=== PATIENT | male | born 1975 | race Caucasian/White ===

== ENCOUNTER → 2017-06-09 | Outpatient (CLI) | payer OTHER ==
[2016-02-22 11:32] VITALS: BP 117/80
--- NOTE | 2017-06-10 10:20 | MRI ---
MRI right shoulder without contrast Indication: Right shoulder pain Comparison: None Technique: Multiplanar multi sequence MR images of the right shoulder were obtained without contrast. Findings: The marrow signal and bony alignment are within normal limits, without evidence for acute f racture or dislocation. There are mild degenerative changes of the AC joint, without gross encroachme nt of the rotator cuff. Trace fluid is present within the subacromial/subdeltoid bursa. There is inte rmediate signal seen within the distal supraspinatus and infraspinatus tendons, consistent with tendi nosis. Focus of fluid signal undermining the distal leading edge supraspinatus fibers is noted, witho ut significant tendon retraction. There is partial undersurface tear of the superior subscapularis te ndon. The teres minor is intact. There is thickening and intermediate signal of the intra-articular p ortion of the long head biceps tendon. There is mildly increased fluid within the bicipital groove. T here is mild diffuse glenohumeral chondrosis, without evidence for full-thickness chondral defect or subchondral marrow signal abnormality. There is some intermediate signal within the superior labrum. The remainder of the labrum is otherwise grossly intact. There is no joint effusion. No significant m uscle atrophy about the shoulder appreciated. Impression: 1. Supraspinatus and infraspinatus tendinosis with focal rim rent tear of the leading edge supraspina tus tendon, without significant tendon retraction. 2. Partial undersurface tear of the superior subscapularis tendon, likely chronic. There is no signif icant subluxation of the long head biceps tendon. 3. Intra-articular biceps tendinosis. Mildly increased peritendinous fluid in the bicipital groove, p ossibly reflecting tenosynovitis. 4. Degenerative fraying/tear of the superior labrum. 5. Mild AC joint degenerative disease, subacromial/subdeltoid bursitis. Reported By:
== END | disposition home or self-care (01) | DRG 556 ==
LOC: RAD 11:17
PROVIDERS: ATTEND Nurse Practitioner Family
DX: M25.511 Pain in right shoulder (principal); S46.811A Strain of other muscles, fascia and tendons at shoulder and upper arm level, right arm, initial encounter; S43.491A Other sprain of right shoulder joint, initial encounter; S46.011A Strain of muscle(s) and tendon(s) of the rotator cuff of right shoulder, initial encounter; X58.XXXA Exposure to other specified factors, initial encounter; M19.011 Primary osteoarthritis, right shoulder; M75.22 Bicipital tendinitis, left shoulder; M75.80 Other shoulder lesions, unspecified shoulder
CPT/HCPCS: 73222

== ENCOUNTER 2017-09-06 18:30 | Emergency (ER) | payer OTHER ==
[2017-09-06 18:34] VITALS: BP 146/96; BMI 29.7
[2017-09-06] MEDS ORDERED: TORADOL 30 MG VIAL ONE (19:04)
[2017-09-06] MEDS ORDERED: TORADOL 30 MG VIAL IVP ONE (19:05)
[2017-09-06] MEDS ORDERED: MORPHINE SULFATE INJ 4 MG IVP ONE (19:05)
[2017-09-06] MEDS ORDERED: MORPHINE SULFATE INJ 4 MG ONE (19:06)
[2017-09-06 19:08] LABS: BILIRUBIN,URINE NEGATIVE (NEGATIVE); BLOOD/HEMOGLOBIN,URINE 5+ (NEGATIVE); GLUCOSE, URINE NEGATIVE (NEGATIVE); KETONES,URINE NEGATIVE (NEGATIVE); LEUKOCYTE ESTERASE ,URINE 1+ (NEGATIVE); NITRITES,URINE POSITIVE (NEGATIVE); PROTEIN,URINE 2+ (NEGATIVE); UROBILINOGEN,URINE NORMAL (NORMAL)
[2017-09-06 19:17] LABS: APPEARANCE,URINE CLOUDY (CLEAR); COLOR,URINE YELLOW (YELLOW)
[2017-09-06 19:18] LABS: AMORPHOUS SEDIMENT,UR 2+ /HPF (NEGATIVE); MUCUS,URINE MODERATE /HPF (NEGATIVE); RBC,URINE TNTC /HPF (NONE SEEN); SQUAMOUS EPITHELIAL CELL,UR RARE /HPF (NEGATIVE)
[2017-09-06 19:21] LABS: BACTERIA,URINE NEGATIVE /HPF (NEGATIVE); CALCIUM OXALATE CRYSTALS,UR RARE /HPF (NEGATIVE)
--- NOTE | 2017-09-06 19:30 | DR.GENAD ---
HPI - PCP Primary Care Physician: artemio - Complaint/Symptoms Chief Complaint Doctors Comments: Patient presents with right flank pain; he has a history of kidney stones. Chief Complaint:: flank pain, with hemapuria - Source History Provided: Patient - Mode of Arrival Mode of Arrival: Ambulatory - Timing Onset of Chief Complaint: 09/05/17 PMH - PMH Past Medical History: Yes Past Medical History Comment: kidney stone Past Surgical History: Yes Past Surgical History Comment: EGD - Family History History of Family Medical Conditions: Yes Family Medical History: Hypertension - Social History Does patient currently use any type of tobacco product: Yes Have you used tobacco products in the last 12 months: No Type of Tobacco Use: Smokeless Does any household member use tobacco: No Alcohol Use: None Do you use any recreational Drugs:: No Lives With: Family Lives Where: Home - infectious screening In the last 2 months have you had wt loss of >10#?: NO Have you had fever, night sweats or hemotysis?: No Have you traveled outside the country in the last 6 months?: No Isolation: Standard ROS - Review of Systems Eyes: No Symptoms Reported ENTM: No Symptoms Reported Respiratoy: No Symptoms Reported Cardiovascular: No Symptoms Reported Gastrointestinal/Abdominal: No Symptoms Reported Genitourinary: No Symptoms Reported Neurological: No Symptoms Reported Musculoskeletal: No Symptoms Reported Integumentary: No Symptoms Reported Hematologic/Lymphatic: No Symptoms Reported Endocrine: No Symptoms Reported Psychiatric: No Symptoms Reported All Other Systems: Reviewed and Negative PE - Vital Signs Vitals: Temperature 97.5 F Pulse Rate 84 Respiratory Rate 18 Blood Pressure 146/96 O2 Sat by Pulse Oximetry 99 - General Limitations: No Limitations General Appearance: Alert, In No Apparent Distress - Head Head Exam: Normal Inspection - Eyes Eye exam: Normal Appearance, PERRL, EOMI - ENT ENT Exam: Normal Exam External Ear Exam: Normal External Inspection TM/Canal Exam: Bilateral Normal Nose Exam: Normal Nose Exam Mouth Exam: Normal Inspection Throat Exam: Normal Inspection - Neck Neck Exam: Normal Inspection, Full ROM - Chest Chest Inspection: Normal Inspection - Respiratory Respiratory Exam: Normal Lung Sounds Bilat Respiratory Exam: Bilateral Clear to Auscultation - Cardiovascular Cardiovascular Exam: Regular Rate, Normal Rhythm - Abdominal Exam Abdominal Exam: Normal Inspection Abdominal Tenderness: negative: RUQ, RLQ, LUQ, LLQ, Epigastrium, Suprapubic, Diffuse, Mild, Moderate, Severe, Other - Extremities Extremities Exam: Normal Inspection, Full ROM - Back Back Exam: Normal Inspection, Full ROM - Neurologic Neurological Exam: Alert, Oriented X3, CN II-XII Intact - Psychiatric Psychiatric Exam: Normal Affect, Normal Mood - Skin Skin Exam: Warm, Dry, Intact Course - Reevaluation 1st: Improved - Education/Counseling Educated On: Treatment, Diagnosis, Prognosis, Needs for Follow Up ROR - Labs Reviewed Laboratory: Specimen Type Random urine 09/06/17 18:42 Urine Color Yellow (YELLOW) 09/06/17 18:42 Urine Appearance Cloudy (CLEAR) 09/06/17 18:42 Urine pH 7.0 (5.0 - 8.0) 09/06/17 18:42 Ur Specific [place] 1.025 (1.000-1.030) 09/06/17 18:42 Urine Protein 2+ (NEGATIVE) 09/06/17 18:42 Urine Glucose (UA) Negative (NEGATIVE) 09/06/17 18:42 Urine Ketones Negative (NEGATIVE) 09/06/17 18:42 Urine Occult Blood 5+ (NEGATIVE) 09/06/17 18:42 Urine Nitrite Positive (NEGATIVE) 09/06/17 18:42 Urine Bilirubin Negative (NEGATIVE) 09/06/17 18:42 Urine Urobilinogen Normal (NORMAL) 09/06/17 18:42 Ur Leukocyte Esterase 1+ (NEGATIVE) 09/06/17 18:42 Urine RBC Tntc /HPF (NONE SEEN) 09/06/17 18:42 Urine WBC 01 - 04 /HPF (NONE SEEN) 09/06/17 18:42 Ur Squamous Epith Cells Rare /HPF (NEGATIVE) 09/06/17 18:42 Calcium Oxalate Crystal Rare /HPF (NEGATIVE) 18 18:42 Amorphous Sediment 2+ /HPF (NEGATIVE) 09/06/17 18:42 Urine Bacteria Negative /HPF (NEGATIVE) 09/06/17 18:42 Urine Mucus Moderate /HPF (NEGATIVE) 18 18:42 Ur Culture Indicated? No/not indicated 09/06/17 18:42 - XRAY XRAY Interpreted by: Radiologist (CT Abd/pel: Imaging of the abdomen and pelvis demonstrates a 7mm stone located within the proximal right ureter,resulting in mild hydronephrosis on the right as well as extensive perinephric and periureteral inflammatory stranding. There a multiple smaller nonobstructing caliceal stones scattered within the right kidney as well. The left kidney and left ureter are unremarkable.) - Diagnosis Discharge Problem: mild hydronephrosis on the right, Right nephrolithiasis - Discharge Plan Condition: Stable - Follow ups/Referrals Follow ups/Referrals: DIONE BRYANT [Primary Care Provider] - 3 days - Instructions
--- NOTE | 2017-09-06 19:37 | CT ---
HISTORY: Hematuria Study: CT abdomen and pelvis without contrast Comparison: 02/08/2016 Technique: Multiple axial images of the abdomen and pelvis were obtained from the lung bases to the pubic symphy sis without the administration of IV contrast. Findings: The visualized portions of the lung bases are unremarkable. Imaging of the abdomen and pelvis demonstrates a 7 mm stone located within the proximal right ureter, resulting in mild hydronephrosis on the right as well as extensive perinephric and periureteral infl ammatory stranding. There are multiple smaller nonobstructing caliceal stones scattered within the ri ght kidney as well. The left kidney and left ureter are unremarkable. The liver, pancreas, spleen, an d bilateral adrenal glands are unremarkable. A very small hiatal hernia is incidentally noted. No si gnificant mesenteric lymphadenopathy is observed. No free fluid or free air is seen within the abdom en. No bowel wall thickening or bowel dilatation is present. The colon is unremarkable. The appendi x is normal in appearance and without inflammatory change. The urinary bladder is grossly unremarkabl e. The bony structures are grossly intact. IMPRESSION: 1. Proximal right ureteral stone resulting in mild hydronephrosis as well as extensive perinephric a nd periureteral inflammatory stranding. 2. Right nephrolithiasis. 3. Very small hiatal hernia. Reported By:
== END 2017-09-06 20:25 | disposition home or self-care (01) ==
LOC: ER 18:36
DX: N20.0 Calculus of kidney (principal); R10.84 Generalized abdominal pain
CPT/HCPCS: 74176; 81001; 96365; 96374; 96375; 99283; J1885; J2270

== ENCOUNTER → 2017-09-24 | Outpatient (CLI) | payer OTHER ==
[2017-09-06 18:34] VITALS: BP 146/96
--- NOTE | 2017-09-24 16:34 | RAD ---
History: Kidney stones Study: KUB Comparison: CT abdomen examination of September 06 Findings: The bowel gas pattern is normal. There is a phlebolith the right pelvis. The CT demonstrate d proximal right ureteral calculus or lower pole renal calculi are not discerned on this exam and may be partially obscured by overlying bowel gas or underlying bony structures. There are mild degenerat samantha changes in the lower lumbar spine. Impression: Negative, no demonstration of the previously demonstrated right renal and proximal ureteral calculi Reported By:
== END ==
LOC: RAD 16:01
PROVIDERS: ATTEND Specialist
DX: N20.0 Calculus of kidney (principal)
CPT/HCPCS: 74018